=== PATIENT | male | born 1975 | race Caucasian/White ===

== ENCOUNTER 2018-03-14 23:33 | Emergency (ER) | payer MEDICAID ==
--- NOTE | 2018-03-15 00:04 | EDPHY ---
H & P Stated Complaint: meth addiction Time Seen by Provider: 03/14/18 23:54 HPI/ROS: Chief Complaint: Meth addiction, suicidal HPI: 43-year-old male with a history of chronic meth amphetamine use. Patient is here seeking help. He is stating that "if you do not help me with my meth addiction I am going to kill myself". He states he has a plan to overdose. Has attempted overdose in the past. States his last methamphetamine use was about 12 hr ago. Does smoke cigarettes. Denies any other drug use or alcohol use. No fevers or chills. No cough. No nausea or vomiting. Denies hallucinations. ROS: 10 systems were reviewed and were negative except those elements noted in the HPI. PMH: Chronic methamphetamine abuse Social History: Positive smoking, no alcohol, daily methamphetamine use Family History: non-contributory Physical Exam: Gen: Awake, Alert, No Distress, then, unkempt HEENT: Nose: no rhinorrhea Eyes: PERRLA, EOMI Mouth: Moist mucosa Neck: Supple, no JVD Chest: nontender, lungs clear to auscultation Heart: S1, S2 normal, no murmur Abd: Soft, non-tender, no guarding Back: no CVA tenderness, no midline tenderness Ext: no edema, non-tender Skin: no rash Neuro: CN II-XII intact, Sensation grossly intact, Strength 5/5 in bilateral upper and lower extremities - Medical/Surgical History Hx Asthma: No Hx Chronic Respiratory Disease: No Hx Diabetes: No Hx Cardiac Disease: No Hx Renal Disease: No Hx Cirrhosis: No Hx Alcoholism: No Hx HIV/AIDS: No Hx Splenectomy or Spleen Trauma: No Other PMH: Hx of back issues. Denies surgical Hx. depresion, anxiety - Social History Smoking Status: Current every day smoker Constitutional: Initial Vital Signs Temperature (C) 37.5 C 03/14/18 23:41 Heart Rate 126 H 03/14/18 23:41 Respiratory Rate 20 03/14/18 23:41 Blood Pressure 112/72 03/14/18 23:41 O2 Sat (%) 93 03/14/18 23:41 Allergies/Adverse Reactions: cinnamon Allergy (Verified 03/14/18 23:40) Penicillins Allergy (Verified 03/14/18 23:40) Home Medications: Medication Instructions Recorded Cyclobenzaprine [Flexeril] 10 mg PO TID PRN #15 tab 10/31/14 oxyCODONE/APAP 5/325 [Percocet 1 - 2 tab PO Q6-8PRN PRN #20 tab 10/31/14 5/325 (RX)] Medical Decision Making ED Course/Re-evaluation: Patient has rested overnight. He is no longer suicidal. He has been seen by [facility] [place]. He has been provided with resources for [facility]. He will follow up there today. He is in agreement with the plan. He is currently owen for safety. - Data Points Laboratory Results: Laboratory Results 03/15/18 00:25 03/15/18 00:15 03/15/18 03/15/18 03/15/18 03:20 00:25 00:15 WBC 11.50 10^3/uL H 10^3/uL (3.80-9.50) RBC 4.31 10^6/uL L 10^6/uL (4.40-6.38) Hgb 12.1 g/dL L g/dL (13.7-17.5) Hct 37.4 % L % (40.0-51.0) MCV 86.8 fL fL (81.5-99.8) MCH 28.1 pg pg (27.9-34.1) MCHC 32.4 g/dL g/dL (32.4-36.7) RDW 14.0 % % (11.5-15.2) Plt Count 391 10^3/uL 10^3/uL (150-400) MPV 9.5 fL fL (8.7-11.7) Neut % (Auto) 70.4 % % (39.3-74.2) Lymph % (Auto) 19.6 % % (15.0-45.0) [place] % (Auto) 7.6 % % (4.5-13.0) Eos % (Auto) 1.6 % % (0.6-7.6) Baso % (Auto) 0.4 % % (0.3-1.7) Nucleat RBC Rel Count 0.0 % % (0.0-0.2) Absolute Neuts (auto) 8.10 10^3/uL H 10^3/uL (1.70-6.50) Absolute Lymphs (auto) 2.25 10^3/uL 10^3/uL (1.00-3.00) Absolute Monos (auto) 0.87 10^3/uL H 10^3/uL (0.30-0.80) Absolute Eos (auto) 0.18 10^3/uL 10^3/uL (0.03-0.40) Absolute Basos (auto) 0.05 10^3/uL 10^3/uL (0.02-0.10) Absolute Nucleated RBC 0.00 10^3/uL 10^3/uL (0-0.01) Immature Gran % 0.4 % % (0.0-1.1) Immature Gran # 0.05 10^3/uL 10^3/uL (0.00-0.10) Sodium 138 mEq/L mEq/L (135-145) Potassium 4.0 mEq/L mEq/L (3.3-5.0) Chloride 106 mEq/L mEq/L (97-110) Carbon Dioxide 21 mEq/l L mEq/l (22-31) Anion Gap 11 mEq/L mEq/L (8-16) BUN 18 mg/dL mg/dL (7-23) Creatinine 0.8 mg/dL mg/dL (0.7-1.3) Estimated GFR > 60 Glucose 162 mg/dL H mg/dL (70-100) Calcium 9.4 mg/dL mg/dL (8.5-10.4) Urine Opiates Screen NEGATIVE (NEGATIVE) Urine Barbiturates NEGATIVE (NEGATIVE) Ur Phencyclidine Scrn NEGATIVE (NEGATIVE) Ur Amphetamine Screen NON-NEGATIVE H (NEGATIVE) U Benzodiazepines Scrn NEGATIVE (NEGATIVE) Urine Cocaine Screen NEGATIVE (NEGATIVE) U Marijuana (THC) Screen NON-NEGATIVE H (NEGATIVE) Ethyl Alcohol < 10 mg/dL mg/dL (0-10) Departure - Departure Disposition: Home, Routine, Self-Care Clinical Impression: Methamphetamine abuse Condition: Good Instructions: Methamphetamine Abuse (ED) Additional Instructions: Follow up at [facility] for further treatment for your substance abuse. Referrals: [facility],. [Clinic] - As per Instructions
[2018-03-15 00:59] LABS: PLATELET COUNT 391 10^3/uL (150-400)
[2018-03-15 06:25] VITALS: BP 107/70
== END 2018-03-15 06:27 | disposition home or self-care (01) ==
DX: F15.10 Other stimulant abuse, uncomplicated (principal); F32.9 Major depressive disorder, single episode, unspecified
CPT/HCPCS: 80305; G0480

== ENCOUNTER 2018-04-24 16:44 | Emergency (ER) | payer MEDICAID, OTHER | END 2018-04-24 17:24 | disposition left against medical advice (07) | DX: Z53.21 Procedure and treatment not carried out due to patient leaving prior to being seen by health care provider (principal) ==

== ENCOUNTER 2018-07-16 22:19 | Emergency (ER) | payer MEDICAID ==
--- NOTE | 2018-07-16 22:26 | EDPHY ---
H & P Stated Complaint: L foot pain Time Seen by Provider: 07/16/18 22:24 HPI/ROS: HPI The patient presents with left foot pain which has been present for the last 2 day, getting progressively worse. He is brought in by ambulance from outside of some sores on my he was trying to get to [place] on the bus. He says his feet got wet about 2 nights ago; he was outside and it was snowing. Patient has changed his socks today and is wearing dry socks, he does report pain throughout his left foot, worse at the toes, which is aching and worse when he walks. He has been walking more than usual. He is trying to get to [place]. He lives in between [place] in [place] but is mostly homeless. REVIEW OF SYSTEMS 10 systems were reviewed and negative with the exception of the elements mentioned in the history of present illness. PMHx: Amputation of left great toe he says because of brown recluse spider bite Soc Hx: Homelessness, history of methamphetamine abuse PHYSICAL General Appearance: Alert, no distress Eyes: Pupils equal and round no pallor or injection ENT, Mouth: Mucous membranes moist Respiratory: There are no retractions, lungs are clear to auscultation Cardiovascular: Regular rate and rhythm Gastrointestinal: Abdomen is soft and non-tender, no masses, bowel sounds normal Neurological: A&O, moves all extremities, he has movement in all of his toes, sensation is intact to light touch, capillary refill is brisk Skin: Warm and dry, no rashes Musculoskeletal: Neck is supple non tender Extremities: Left foot with great toe amputation, stump is slightly erythematous as are the remainder of his toes, all toes are warm, there is no skin breakdown, capillary refill is brisk, sensation is intact to light touch, he is tender to palpation throughout his foot; right foot is warm, there is brisk cap refill of all toes, there is no skin breakdown, sensation is intact to light touch Psychiatric: Patient is oriented X 3, there is no agitation Source: Patient, EMS, Old records Exam Limitations: No limitations - Medical/Surgical History Hx Asthma: No Hx Chronic Respiratory Disease: No Hx Diabetes: No Hx Cardiac Disease: No Hx Renal Disease: No Hx Cirrhosis: No Hx Alcoholism: No Hx HIV/AIDS: No Hx Splenectomy or Spleen Trauma: No Other PMH: Hx of back issues. Denies surgical Hx. depresion, anxiety - Social History Smoking Status: Current every day smoker Constitutional: Initial Vital Signs Temperature (C) 36.7 C 07/16/18 22:23 Heart Rate 99 07/16/18 22:23 Respiratory Rate 18 07/16/18 22:23 Blood Pressure 112/76 07/16/18 22:23 O2 Sat (%) 98 07/16/18 22:23 O2 Delivery Mode Room Air Allergies/Adverse Reactions: cinnamon Allergy (Verified 07/16/18 22:21) Penicillins Allergy (Verified 07/16/18 22:21) Home Medications: Medication Instructions Recorded Cyclobenzaprine [Flexeril] 10 mg PO TID PRN #15 tab 10/31/14 oxyCODONE/APAP 5/325 [Percocet 1 - 2 tab PO Q6-8PRN PRN #20 tab 10/31/14 5/325 (RX)] Clonidine 07/16/18 Gabapentin 07/16/18 Remeron 07/16/18 Medical Decision Making Differential Diagnosis: 43-year-old male who is homeless presents brought in by ambulance with left greater than right foot pain in the setting of cold exposure 2 days ago when he was outside in the snow and his shoes and socks got wet. Since, he has been able to change his socks several times and is wearing dry socks. Here, his feet are slightly erythematous, there is no skin breakdown or ulcerations, sensation is intact, he has full range of motion of his toes and capillary refill is brisk. Plan for pain control here. I have discussed foot hygiene with him. Differential diagnosis includes frostbite, trench foot, foot fracture. I suspect trench foot is cause of his symptoms. - Data Points Medications Given: Discontinued Medications Acetaminophen (Tylenol) 1,000 mg PO EDNOW ONE Stop: 07/16/18 22:32 Last Admin: 07/16/18 22:46 Dose: 1,000 mg Gabapentin (Neurontin) 300 mg PO EDNOW ONE Stop: 07/16/18 22:33 Last Admin: 07/16/18 22:47 Dose: 300 mg Ibuprofen (Motrin) 400 mg PO EDNOW ONE Stop: 07/16/18 22:32 Last Admin: 07/16/18 22:47 Dose: 400 mg Departure - Departure Disposition: Home, Routine, Self-Care Clinical Impression: Left foot pain Condition: Good Instructions: Frostbite (ED) Additional Instructions: Please return to ER if you are worse in any way. I recommend you use dry socks and change them daily. You can take ibuprofen or Tylenol as needed for the pain. Referrals: [facility],. [Clinic] - As per Instructions
[2018-07-16] MEDS ORDERED: ACETAMINOPHEN 500 MG TAB PO ONE (22:31)
[2018-07-16] MEDS ORDERED: IBUPROFEN 200 MG TAB PO ONE (22:31)
[2018-07-16] MEDS ORDERED: GABAPENTIN 300 MG CAP PO ONE (22:32)
[2018-07-16 23:36] VITALS: BP 121/76
== END 2018-07-16 23:36 | disposition home or self-care (01) ==
LOC: EDUNIT#
DX: M79.672 Pain in left foot (principal); Z59.0 Homelessness